=== PATIENT | male | born 1970 | race Two or more races ===

== ENCOUNTER 2022-03-12 07:32 | Outpatient (CLI) | payer OTHER | END 2022-03-12 08:00 | disposition home or self-care (01) | LOC: RAD 07:32 | PROVIDERS: ATTEND General Practice | DX: G51.0 Bell's palsy (principal) | CPT/HCPCS: 70551 ==

== ENCOUNTER 2022-03-12 08:52 | Outpatient (CLI) | payer OTHER | END 2022-03-12 08:53 | disposition home or self-care (01) | LOC: LAB 08:52 | PROVIDERS: ATTEND Radiology Diagnostic Radiology | DX: G51.0 Bell's palsy (principal) ==

== ENCOUNTER 2022-06-25 13:40 | Outpatient (CLI) | payer OTHER | END 2022-06-25 13:45 | disposition home or self-care (01) | LOC: RAD 13:40 | PROVIDERS: ATTEND Physical Medicine & Rehabilitation | DX: M54.2 Cervicalgia (principal) ==